=== PATIENT | male | born 1960 | race African-American/Black ===

== ENCOUNTER 2018-01-16 11:16 | Emergency (ER) | payer OTHER ==
[~2018-01-16] VITALS: Ht 165.1 cm; Wt 59.0 kg
[2018-01-16] MEDS ORDERED: HYDROCODONE-AP1 EAC6 PO (12:39)
== END 2018-01-16 12:42 | disposition home or self-care (01) ==
LOC: ER 11:16
DX: K40.90 Unilateral inguinal hernia, without obstruction or gangrene, not specified as recurrent (principal)